=== PATIENT | female | born 1960 | race Caucasian/White ===

== ENCOUNTER 2017-12-29 08:38 | Day surgery (SDC) | payer OTHER ==
[2017-12-29 10:07] VITALS: RESP 16; TEMP 97.4
[2017-12-29 10:18] VITALS: BP 165/90; PULSE 58; O2SAT 98
== END 2017-12-29 11:20 | disposition home or self-care (01) | DRG 379 ==
LOC: SURG 08:38
PROVIDERS: ATTEND Surgery
DX: K62.5 Hemorrhage of anus and rectum (principal)
CPT/HCPCS: J2001; J2704

== ENCOUNTER 2018-03-31 08:20 | Day surgery (SDC) | payer OTHER ==
[~2018-03-31 08:20] MED LIST: LIDOCAINE HCL 1% MPF 30 SOL ONE; PROPOFOL 500 MG/50 ML EMU IV ONE
[2018-03-31 10:10] VITALS: TEMP 98.1
[2018-03-31 10:23] VITALS: RESP 20
[2018-03-31 10:34] VITALS: O2SAT 97
[2018-03-31 10:45] VITALS: BP 160/88; PULSE 61
== END 2018-03-31 11:05 | disposition home or self-care (01) | DRG 392 ==
LOC: SURG 08:20
PROVIDERS: ATTEND Internal Medicine Gastroenterology
DX: R11.0 Nausea (principal); Q39.9 Congenital malformation of esophagus, unspecified; R14.0 Abdominal distension (gaseous); R10.13 Epigastric pain; K21.9 Gastro-esophageal reflux disease without esophagitis; K44.9 Diaphragmatic hernia without obstruction or gangrene; L53.8 Other specified erythematous conditions; K29.50 Unspecified chronic gastritis without bleeding
CPT/HCPCS: 99001; J2001; J2704